=== PATIENT | female | born 1950 | race Caucasian/White ===

== ENCOUNTER → 2016-12-10 | Outpatient (CLI) | payer MEDICARE, OTHER ==
[2016-12-13 08:40] LABS: LYME DISEASE IGG AND IGM AB <0.91 ISR (0.00-0.90)
== END ==
LOC: OD 17:13
PROVIDERS: ATTEND Specialist
DX: G35 Multiple sclerosis (principal)
CPT/HCPCS: 36415; 82607; 82784; 85652; 86038; 86617; 86618

== ENCOUNTER 2018-01-10 10:49 | Emergency (ER) | payer OTHER, MEDICARE ==
[2018-01-10 11:34] VITALS: BP 122/72
[2018-01-10] MEDS ORDERED: FENTANYL 12 MCG/HR PATCH.TD72 TD ONE (12:57)
[2018-01-10] MEDS ORDERED: FENTANYL 25 MCG/HR PATCH.TD72 TD ONE (12:57)
--- NOTE | 2018-01-10 12:59 | ER Document Report ---
HPI - HPI Patient complains to provider of: Foot and ankle pain Onset: Other - Chronic Onset/Duration: Worse Quality of pain: Sharp Pain Level: 5 Context: Patient has a history of complex regional pain syndrome. Patient states that her doctor has been in the process of weaning her fentanyl dosage down and the pharmacy that he sent the prescription to does not have her correct dose. Patient attempted to get the prescription sent to a different pharmacy and has not been able to get her medication refilled. Patient states she is having a flareup of her chronic pain. Patient states pain is typical flares she has had in the past. Patient denies any new injury to the foot or ankle. Associated Symptoms: Other - Left foot and ankle pain Exacerbated by: Movement Relieved by: Denies Similar symptoms previously: Yes Recently seen / treated by doctor: Yes - ROS ROS below otherwise negative: Yes Systems Reviewed and Negative: Yes All other systems reviewed and negative - CONSTITUTIONAL Constitutional: DENIES: Fever, Chills - GASTROINTESTINAL Gastrointestinal: DENIES: Nausea - REPRODUCTIVE Reproductive: DENIES: : - MUSCULOSKELETAL Musculoskeletal: REPORTS: Extremity pain - DERM Skin Color: Flushed, Erythema Skin Problems: None Past Medical History - General Information source: Patient - Social History Smoking Status: Never Smoker Frequency of alcohol use: None Drug Abuse: None Occupation: Retired Lives with: Family Family History: Reviewed & Not Pertinent - Past Medical History Cardiac Medical History: Reports: Hx Hypertension Denies: Hx Coronary Artery Disease, Hx Heart Attack Pulmonary Medical History: Denies: Hx Asthma, Hx Bronchitis, Hx COPD, Hx Pneumonia Neurological Medical History: Reports: Other - Complex regional pain syndrome involving left ankle and foot. Denies: Hx Cerebrovascular Accident, Hx Seizures Endocrine Medical History: Reports: Hx Hypothyroidism GI Medical History: Denies: Hx Hepatitis, Hx Hiatal Hernia, Hx Ulcer Musculoskeletal Medical History: Reports Hx Arthritis Infectious Medical History: Denies: Hx Hepatitis Surgical Hx: Negative Past Surgical History: Denies: Hx Hysterectomy, Hx Mastectomy, Hx Open Heart Surgery, Hx Pacemaker - Immunizations Hx Diphtheria, Pertussis, Tetanus Vaccination: Yes Vertical Provider Document - CONSTITUTIONAL Agree With Documented VS: Yes Exam Limitations: No Limitations General Appearance: WD/WN, No Apparent Distress - INFECTION CONTROL TRAVEL OUTSIDE OF THE [place] IN LAST 30 DAYS: No - HEENT HEENT: Atraumatic, Normocephalic - NECK Neck: Normal Inspection, Supple - RESPIRATORY Respiratory: Breath Sounds Normal, No Respiratory Distress - CARDIOVASCULAR Cardiovascular: Regular Rate, Regular Rhythm, No Murmur Pulses: Normal: Dorsalis pedis - MUSCULOSKELETAL/EXTREMETIES Musculoskeletal/Extremeties: MAEW, FROM, Tender - Generalized tenderness from left ankle distally to left foot, No Edema - NEURO Level of Consciousness: Awake, Alert, Appropriate Motor/Sensory: No Motor Deficit - DERM Integumentary: Warm, Dry Notes: Mild erythema noted to bilateral feet Course - Vital Signs Vital signs: Temp Pulse Resp BP Pulse Ox 72 16 122/72 100 01/10/18 11:30 01/10/18 11:30 01/10/18 11:30 01/10/18 11:30 Discharge - Discharge Clinical Impression: Complex regional pain syndrome Qualifiers: Complex regional pain syndrome type: type I Complex regional pain syndrome affected site: unspecified Qualified Code(s): G90.50 - Complex regional pain syndrome I, unspecified Condition: Stable Disposition: HOME, SELF-CARE Instructions: Chronic Pain Control ([facility]) Additional Instructions: Return immediately for any new or worsening symptoms Followup with your primary care provider, call tomorrow to make a followup appointment Realo tina Mckeon will be open tomorrow Referrals: ARIEL BARLOW MD [Primary Care Provider] - Follow up as needed
== END 2018-01-10 13:16 | disposition home or self-care (01) ==
LOC: ER 10:49
DX: G90.50 Complex regional pain syndrome I, unspecified (principal); T40.4X6A Underdosing of other synthetic narcotics, initial encounter; Z91.128 Patient's intentional underdosing of medication regimen for other reason; Z91.14 Patient's other noncompliance with medication regimen; M25.572 Pain in left ankle and joints of left foot; M79.672 Pain in left foot; L53.9 Erythematous condition, unspecified; R23.2 Flushing; I10 Essential (primary) hypertension
CPT/HCPCS: 99283; J3490